=== PATIENT | female | born 1940 | race African-American/Black ===

== ENCOUNTER 2018-02-20 16:28 | Inpatient (IN) ==
[2018-02-20 18:19] LABS: Basophils # 0.1 10*3/uL (0.0-0.2); Basophils % 0.7 % (0.0-0.8); Eosinophils # 0.9 10*3/uL (0.0-0.87); Eosinophils % 9.1 % (0.00-10.9); Hematocrit 37.1 VOL% (35.7-47.0); Hemoglobin 12.1 GM/DL (12.0-16.0); Immature Granulocytes % 2.6 %; Immature Granulocytes Absolute 0.24 #; Lymphocytes # 1.6 10*3/uL (1.4-4.0); Lymphocytes % 17.1 % (21.3-54.2); Mean Corpuscular HGB Conc 32.6 GM/DL (32-36); Mean Corpuscular Hemoglobin 33 PG (27-34); Mean Corpuscular Volume 100.8 FL (87-102); Mean Platelet Volume 11.8 FL (9.6-12.0); Monocytes # 1.1 10*3/uL (0.11-0.8); Monocytes % 11.3 % (1.7-12.7); Neutrophils # 5.6 10*3/uL (1.4-7.4); Neutrophils % 59.2 % (38.7-73.9); Platelet Count 171 T/CUMM (130-400); Red Blood Count 3.68 MC/CUMM (3.8-5.5); Red Cell Distribution Width 12.4 % (9.3-17.3); White Blood Count 9.4 T/CUMM (4-12)
[2018-02-20] MEDS ORDERED: CLINDAMYCIN INJ 600 MG in PREMIX 1 EACH IV STA (18:30)
[2018-02-20 19:09] LABS: Calcium 7.9 MG/DL (8.5-10.1); Osmolality,Calculated 290.1 MOS/KG (273-304); Potassium 4.1 MMOL/L (3.5-5.1)
[2018-02-20] MEDS ORDERED: ACETAMINOPHEN 325 MG TABLET PO PRN (22:26)
[2018-02-20] MEDS ORDERED: ONDANSETRON 4 MG/2 ML VIAL IV PRN (22:26)
[2018-02-20] MEDS ORDERED: dimenhyDRINATE 50 MG TABLET PO PRN (22:26)
[2018-02-21] MEDS: CLINDAMYCIN INJ 600 MG in PREMIX 1 EACH IV SCH ×3 (03:50→21:27)
[2018-02-21] MEDS: diphenhydrAMINE CAP 25 MG CAPSULE PO PRN (08:07)
[2018-02-21] MEDS ORDERED: methylPREDNISolone SOD SUC 125 MG/2 ML VIAL IV ONE (10:01)
[2018-02-21] MEDS: ASPIRIN EC 81 MG TABLET PO SCH (10:20)
[2018-02-21] MEDS: LORATADINE 10 MG TABLET PO SCH (10:20)
[2018-02-21] MEDS: FLUCONAZOLE 150 MG TABLET PO SCH (10:20)
[2018-02-21] MEDS: POTASSIUM CHLORIDE 20 MEQ TABLET PO SCH (10:20)
[2018-02-21] MEDS: hydroCHLOROthiazide 25 MG TABLET PO SCH (10:21)
[2018-02-21] MEDS: HydrOXYzine PAMOATE 25 MG CAPSULE PO SCH ×2 (10:21→21:26)
[2018-02-21] MEDS: BENAZEPRIL 10 MG TABLET PO SCH (10:21)
[2018-02-21] MEDS: QUEtiapine 25 MG TABLET PO SCH ×2 (10:21→21:26)
[2018-02-21] MEDS: NEBIVOLOL 10 MG TABLET PO SCH (10:21)
[2018-02-21] MEDS: MEMANTINE 10 MG TABLET PO SCH (10:21)
[2018-02-21] MEDS: DOCUSATE SODIUM 100 MG CAPSULE PO SCH ×2 (10:21→21:26)
[2018-02-21] MEDS ORDERED: NEOMYCIN/POLYMYXIN/BACITRACIN OINT 0.9 GM PACK TOP SCH (21:00)
[2018-02-21] MEDS: traZODone 50 MG TABLET PO SCH (21:26)
[2018-02-21] MEDS: PRAVASTATIN 40 MG TABLET PO SCH (21:26)
[2018-02-21] MEDS: MELATONIN 3 MG TABLET PO SCH (21:26)
[2018-02-21] MEDS: NEOMYCIN/POLYMYXIN/BACITRACIN OINT 0.9 GM PACK TOP SCH (22:11)
[2018-02-22] MEDS: CLINDAMYCIN INJ 600 MG in PREMIX 1 EACH IV SCH ×3 (04:13→19:34)
[2018-02-22 05:43] LABS: Basophils % 0.2 % (0.0-0.8); Hematocrit 30.6 VOL% (35.7-47.0); Hemoglobin 9.9 GM/DL (12.0-16.0); Immature Granulocytes Absolute 0.25 #; Lymphocytes % 7.9 % (21.3-54.2); Mean Corpuscular HGB Conc 32.4 GM/DL (32-36); Mean Corpuscular Hemoglobin 33 PG (27-34); Mean Corpuscular Volume 100.3 FL (87-102); Mean Platelet Volume 12.1 FL (9.6-12.0); Monocytes % 7.8 % (1.7-12.7); Neutrophils # 10.1 10*3/uL (1.4-7.4); Neutrophils % 82.1 % (38.7-73.9); Platelet Count 157 T/CUMM (130-400); Red Blood Count 3.05 MC/CUMM (3.8-5.5); Red Cell Distribution Width 12.3 % (9.3-17.3); White Blood Count 12.3 T/CUMM (4-12)
[2018-02-22 06:04] LABS: Calcium 8.1 MG/DL (8.5-10.1); Osmolality,Calculated 306.4 MOS/KG (273-304); Potassium 4.4 MMOL/L (3.5-5.1)
[2018-02-22] MEDS: FLUCONAZOLE 150 MG TABLET PO SCH (08:40)
[2018-02-22] MEDS: hydroCHLOROthiazide 25 MG TABLET PO SCH (08:41)
[2018-02-22] MEDS: NEBIVOLOL 10 MG TABLET PO SCH (08:41)
[2018-02-22] MEDS: LORATADINE 10 MG TABLET PO SCH (08:41)
[2018-02-22] MEDS: NEOMYCIN/POLYMYXIN/BACITRACIN OINT 0.9 GM PACK TOP SCH ×2 (08:41→21:47)
[2018-02-22] MEDS: POTASSIUM CHLORIDE 20 MEQ TABLET PO SCH (08:41)
[2018-02-22] MEDS: QUEtiapine 25 MG TABLET PO SCH ×2 (08:41→21:46)
[2018-02-22] MEDS: BENAZEPRIL 10 MG TABLET PO SCH (08:41)
[2018-02-22] MEDS: DOCUSATE SODIUM 100 MG CAPSULE PO SCH ×2 (08:41→21:45)
[2018-02-22] MEDS: HydrOXYzine PAMOATE 25 MG CAPSULE PO SCH ×2 (08:41→21:44)
[2018-02-22] MEDS: ASPIRIN EC 81 MG TABLET PO SCH (08:41)
[2018-02-22] MEDS: MEMANTINE 10 MG TABLET PO SCH (08:41)
[2018-02-22] MEDS ORDERED: methylPREDNISolone SOD SUC 125 MG/2 ML VIAL IV ONE (10:09)
[2018-02-22] MEDS ORDERED: GLUCAGON 1 MG VIAL IM PRN ×2 (10:32→10:34)
[2018-02-22] MEDS ORDERED: DEXTROSE 50% 25 GM/50 ML VIAL IV PRN ×2 (10:32→10:34)
[2018-02-22] MEDS: INSULIN LISPRO 100 UNIT/ML SUBCUT SCH ×3 (12:53→21:48)
[2018-02-22] MEDS: diphenhydrAMINE CAP 25 MG CAPSULE PO PRN (19:34)
[2018-02-22] MEDS: PRAVASTATIN 40 MG TABLET PO SCH (21:44)
[2018-02-22] MEDS: MELATONIN 3 MG TABLET PO SCH (21:45)
[2018-02-22] MEDS: traZODone 50 MG TABLET PO SCH (21:46)
[2018-02-23] MEDS: CLINDAMYCIN INJ 600 MG in PREMIX 1 EACH IV SCH ×2 (05:23→12:57)
[2018-02-23] MEDS ORDERED: methylPREDNISolone SOD SUC 125 MG/2 ML VIAL IV SCH (09:00)
[2018-02-23] MEDS: NEOMYCIN/POLYMYXIN/BACITRACIN OINT 0.9 GM PACK TOP SCH ×2 (09:25→21:51)
[2018-02-23] MEDS: INSULIN LISPRO 100 UNIT/ML SUBCUT SCH ×4 (09:25→21:31)
[2018-02-23] MEDS: QUEtiapine 25 MG TABLET PO SCH ×2 (09:27→21:35)
[2018-02-23] MEDS: MEMANTINE 10 MG TABLET PO SCH (09:27)
[2018-02-23] MEDS: FLUCONAZOLE 100 MG TABLET PO SCH (09:28)
[2018-02-23] MEDS: LORATADINE 10 MG TABLET PO SCH (09:28)
[2018-02-23] MEDS: ASPIRIN EC 81 MG TABLET PO SCH (09:29)
[2018-02-23] MEDS: DOCUSATE SODIUM 100 MG CAPSULE PO SCH ×2 (09:29→21:35)
[2018-02-23] MEDS: POTASSIUM CHLORIDE 20 MEQ TABLET PO SCH (09:29)
[2018-02-23] MEDS: hydroCHLOROthiazide 25 MG TABLET PO SCH (09:30)
[2018-02-23] MEDS: NEBIVOLOL 10 MG TABLET PO SCH (09:30)
[2018-02-23] MEDS: BENAZEPRIL 10 MG TABLET PO SCH (09:32)
[2018-02-23] MEDS: HydrOXYzine PAMOATE 25 MG CAPSULE PO SCH ×2 (09:38→21:36)
[2018-02-23 11:38] LABS: Alanine Aminotransferase 15 U/L (13-56); Albumin 2.2 G/DL (3.4-5.0); Alkaline Phosphatase 160 U/L (45-117); Aspartate Amino Transferase 18 U/L (0-37); Bilirubin,Direct < 0.050 MG/DL (0.0-0.20); Bilirubin,Indirect 0.3 MG/DL (0.0-1.0); Bilirubin,Total < 0.39 MG/DL (0.2-1.0); Total Protein 6.8 G/DL (6.4-8.3)
[2018-02-23] MEDS ORDERED: SKIN HEALING OINT (AQUAPHOR) 50 GM TUBE TOP SCH (16:00)
[2018-02-23] MEDS: PRAVASTATIN 40 MG TABLET PO SCH (21:35)
[2018-02-23] MEDS: MELATONIN 3 MG TABLET PO SCH (21:35)
[2018-02-23] MEDS: traZODone 50 MG TABLET PO SCH (21:35)
[2018-02-23] MEDS: diphenhydrAMINE CAP 25 MG CAPSULE PO PRN (21:38)
[2018-02-24 05:58] LABS: Basophils # 0.1 10*3/uL (0.0-0.2); Basophils % 0.3 % (0.0-0.8); Eosinophils % 0.2 % (0.00-10.9); Hemoglobin 9.9 GM/DL (12.0-16.0); Immature Granulocytes % 6.9 %; Immature Granulocytes Absolute 1.37 #; Lymphocytes # 1.7 10*3/uL (1.4-4.0); Lymphocytes % 8.4 % (21.3-54.2); Mean Corpuscular Hemoglobin 33 PG (27-34); Mean Platelet Volume 11.9 FL (9.6-12.0); Monocytes # 1.8 10*3/uL (0.11-0.8); Monocytes % 9.1 % (1.7-12.7); NRBC # 0.02 10*3/uL; Neutrophils % 75.1 % (38.7-73.9); Platelet Count 165 T/CUMM (130-400); Red Blood Count 3.03 MC/CUMM (3.8-5.5); Red Cell Distribution Width 12.2 % (9.3-17.3); White Blood Count 19.9 T/CUMM (4-12)
[2018-02-24 06:19] LABS: Calcium 7.9 MG/DL (8.5-10.1); Osmolality,Calculated 292.5 MOS/KG (273-304); Potassium 4.4 MMOL/L (3.5-5.1)
[2018-02-24 06:28] LABS: Band Neutrophils 1 % (0-10); Hypochromasia 1+; Lymphocytes 10 % (20-55); Platelet Estimate Normal; Segmented Neutrophils 85 % (50-85); Total Cells Counted 100
[2018-02-24] MEDS: ASPIRIN EC 81 MG TABLET PO SCH (08:51)
[2018-02-24] MEDS: NEBIVOLOL 10 MG TABLET PO SCH (08:51)
[2018-02-24] MEDS: HydrOXYzine PAMOATE 25 MG CAPSULE PO SCH ×2 (08:51→20:31)
[2018-02-24] MEDS: MEMANTINE 10 MG TABLET PO SCH (08:51)
[2018-02-24] MEDS: LORATADINE 10 MG TABLET PO SCH (08:52)
[2018-02-24] MEDS: FLUCONAZOLE 100 MG TABLET PO SCH (08:52)
[2018-02-24] MEDS: BENAZEPRIL 10 MG TABLET PO SCH (08:53)
[2018-02-24] MEDS: DOCUSATE SODIUM 100 MG CAPSULE PO SCH ×2 (08:53→20:31)
[2018-02-24] MEDS: POTASSIUM CHLORIDE 20 MEQ TABLET PO SCH (08:53)
[2018-02-24] MEDS: hydroCHLOROthiazide 25 MG TABLET PO SCH (08:53)
[2018-02-24] MEDS: INSULIN LISPRO 100 UNIT/ML SUBCUT SCH ×4 (08:53→20:31)
[2018-02-24] MEDS: methylPREDNISolone SOD SUC 40 MG/1 ML VIAL IV SCH (08:58)
[2018-02-24 09:01] LABS: Anti SS-A Antibodies < 16 EU/ML
[2018-02-24] MEDS: NEOMYCIN/POLYMYXIN/BACITRACIN OINT 0.9 GM PACK TOP SCH ×2 (10:14→20:33)
[2018-02-24] MEDS: QUEtiapine 25 MG TABLET PO SCH (20:31)
[2018-02-24] MEDS: MELATONIN 3 MG TABLET PO SCH (20:31)
[2018-02-24] MEDS: traZODone 50 MG TABLET PO SCH (20:31)
[2018-02-24] MEDS: PRAVASTATIN 40 MG TABLET PO SCH (20:31)
[2018-02-25 07:26] LABS: Calcium 8.7 MG/DL (8.5-10.1); Osmolality,Calculated 291.3 MOS/KG (273-304); Potassium 4.5 MMOL/L (3.5-5.1)
[2018-02-25] MEDS: LORATADINE 10 MG TABLET PO SCH (08:03)
[2018-02-25] MEDS: ASPIRIN EC 81 MG TABLET PO SCH (08:03)
[2018-02-25] MEDS: NEBIVOLOL 10 MG TABLET PO SCH (08:03)
[2018-02-25] MEDS: MEMANTINE 10 MG TABLET PO SCH (08:04)
[2018-02-25] MEDS: BENAZEPRIL 10 MG TABLET PO SCH (08:04)
[2018-02-25] MEDS: POTASSIUM CHLORIDE 20 MEQ TABLET PO SCH (08:05)
[2018-02-25] MEDS: FLUCONAZOLE 100 MG TABLET PO SCH (08:05)
[2018-02-25] MEDS: HydrOXYzine PAMOATE 25 MG CAPSULE PO SCH ×2 (08:05→21:07)
[2018-02-25] MEDS: hydroCHLOROthiazide 25 MG TABLET PO SCH (08:05)
[2018-02-25] MEDS: DOCUSATE SODIUM 100 MG CAPSULE PO SCH ×2 (08:05→21:07)
[2018-02-25] MEDS: methylPREDNISolone SOD SUC 40 MG/1 ML VIAL IV SCH (08:11)
[2018-02-25] MEDS: NEOMYCIN/POLYMYXIN/BACITRACIN OINT 0.9 GM PACK TOP SCH (08:12)
[2018-02-25] MEDS: INSULIN LISPRO 100 UNIT/ML SUBCUT SCH ×4 (08:41→21:08)
[2018-02-25 09:47] LABS: Basophils # 0.1 10*3/uL (0.0-0.2); Basophils % 0.6 % (0.0-0.8); Eosinophils # 0.3 10*3/uL (0.0-0.87); Eosinophils % 1.3 % (0.00-10.9); Hematocrit 35.4 VOL% (35.7-47.0); Hemoglobin 11.8 GM/DL (12.0-16.0); Immature Granulocytes % 8.3 %; Immature Granulocytes Absolute 1.81 #; Lymphocytes # 2.9 10*3/uL (1.4-4.0); Lymphocytes % 13.4 % (21.3-54.2); Mean Corpuscular HGB Conc 33.3 GM/DL (32-36); Mean Corpuscular Hemoglobin 33 PG (27-34); Mean Corpuscular Volume 99.2 FL (87-102); Mean Platelet Volume 12.5 FL (9.6-12.0); NRBC # 0.05 10*3/uL; Neutrophils # 14.7 10*3/uL (1.4-7.4); Neutrophils % 67.4 % (38.7-73.9); Platelet Count 198 T/CUMM (130-400); Red Blood Count 3.57 MC/CUMM (3.8-5.5); Red Cell Distribution Width 12.3 % (9.3-17.3); White Blood Count 21.8 T/CUMM (4-12)
[2018-02-25 10:00] LABS: Band Neutrophils 6 % (0-10); Eosinophils 2 % (0-10); Lymphocytes 13 % (20-55); Nucleated Red Blood Cells 1 (0-5); Platelet Estimate Adequate; Segmented Neutrophils 67 % (50-85); Total Cells Counted 100
[2018-02-25 10:01] LABS: Hypochromasia 1+; Ovalocytes Slight
[2018-02-25] MEDS ORDERED: LORazepam 2 MG/1 ML VIAL IV PRN (20:26)
[2018-02-25] MEDS: QUEtiapine 25 MG TABLET PO SCH (21:07)
[2018-02-26 06:45] LABS: Basophils # 0.1 10*3/uL (0.0-0.2); Basophils % 0.3 % (0.0-0.8); Eosinophils # 0.2 10*3/uL (0.0-0.87); Eosinophils % 1.1 % (0.00-10.9); Hematocrit 30.9 VOL% (35.7-47.0); Hemoglobin 10.4 GM/DL (12.0-16.0); Immature Granulocytes % 7.3 %; Immature Granulocytes Absolute 1.28 #; Lymphocytes # 1.6 10*3/uL (1.4-4.0); Mean Corpuscular HGB Conc 33.7 GM/DL (32-36); Mean Corpuscular Hemoglobin 33 PG (27-34); Mean Corpuscular Volume 97.5 FL (87-102); Mean Platelet Volume 12.1 FL (9.6-12.0); Monocytes # 2.2 10*3/uL (0.11-0.8); Monocytes % 12.6 % (1.7-12.7); NRBC # 0.02 10*3/uL; Neutrophils # 12.3 10*3/uL (1.4-7.4); Neutrophils % 69.7 % (38.7-73.9); Platelet Count 175 T/CUMM (130-400); Red Blood Count 3.17 MC/CUMM (3.8-5.5); Red Cell Distribution Width 12.7 % (9.3-17.3); White Blood Count 17.6 T/CUMM (4-12)
[2018-02-26 06:58] LABS: Calcium 8.3 MG/DL (8.5-10.1); Osmolality,Calculated 293.1 MOS/KG (273-304); Potassium 4.2 MMOL/L (3.5-5.1)
[2018-02-26 07:09] LABS: Band Neutrophils 1 % (0-10); Eosinophils 3 % (0-10); Hypochromasia 1+; Lymphocytes 11 % (20-55); Platelet Estimate Normal; Segmented Neutrophils 75 % (50-85); Total Cells Counted 100
[2018-02-26] MEDS: INSULIN LISPRO 100 UNIT/ML SUBCUT SCH ×2 (09:46→12:34)
[2018-02-26] MEDS: methylPREDNISolone SOD SUC 40 MG/1 ML VIAL IV SCH (09:48)
[2018-02-26 11:24] VITALS: BP 155/81
[2018-02-26] MEDS: DOCUSATE SODIUM 100 MG CAPSULE PO SCH (12:39)
[2018-02-26] MEDS: ASPIRIN EC 81 MG TABLET PO SCH (12:40)
[2018-02-26] MEDS: NEBIVOLOL 10 MG TABLET PO SCH (12:40)
[2018-02-26] MEDS: HydrOXYzine PAMOATE 25 MG CAPSULE PO SCH (12:41)
[2018-02-26] MEDS: hydroCHLOROthiazide 25 MG TABLET PO SCH (12:41)
[2018-02-26] MEDS: FLUCONAZOLE 100 MG TABLET PO SCH (12:42)
[2018-02-26] MEDS: LORATADINE 10 MG TABLET PO SCH (12:42)
== END 2018-02-26 13:25 | disposition home health service (06) | DRG 607 ==
LOC: EDBD → EDUNIT# → N.EDINP 16:28 → N.ED 16:28 → N.3E 21:45
PROVIDERS: ADMIT Internal Medicine; ATTEND Internal Medicine

== ENCOUNTER 2018-08-29 08:03 | Inpatient (IN) ==
[2018-08-29 08:32] LABS: Basophils % 0.3 % (0.0-0.8); Eosinophils # 0.2 10*3/uL (0.0-0.87); Eosinophils % 1.6 % (0.00-10.9); Hemoglobin 12.3 GM/DL (12.0-16.0); Immature Granulocytes % 2.3 %; Immature Granulocytes Absolute 0.26 #; Lymphocytes # 2.3 10*3/uL (1.4-4.0); Mean Corpuscular HGB Conc 30.8 GM/DL (32-36); Mean Corpuscular Hemoglobin 31 PG (27-34); Mean Platelet Volume 12.6 FL (9.6-12.0); Monocytes # 1.3 10*3/uL (0.11-0.8); Monocytes % 11.4 % (1.7-12.7); NRBC # 0.09 10*3/uL; Neutrophils # 7.4 10*3/uL (1.4-7.4); Neutrophils % 64.4 % (38.7-73.9); Platelet Count 187 T/CUMM (130-400); Red Cell Distribution Width 14.2 % (9.3-17.3); White Blood Count 11.5 T/CUMM (4-12)
[2018-08-29 08:50] LABS: Albumin 2.1 G/DL (3.4-5.0); Bilirubin,Total 0.7 MG/DL (0.2-1.0); Calcium 8.7 MG/DL (8.5-10.1); Osmolality,Calculated 311.6 MOS/KG (273-304); Total Protein 7.6 G/DL (6.4-8.3)
[2018-08-29 09:00] LABS: Amorphous Crystals,Urine Few /HPF (Few); Apearance,Urine CLOUDY (Clear); Bacteria,Urine Moderate /HPF (Few); Bilirubin,Urine Negative (Negative); Blood, Urine Moderate mg/dL (Negative); Glucose,Urine (UA) Negative (Negative); Ketones,Urine 5 mg/dL (Negative); Mucus,Urine Occasional /LPF (Occasional); Nitrite,Urine Negative (Negative); Protein,Urine 100 MG/DL; RBC,Urine 7 /HPF (0-4); Squamous Epithelial Cell,Urine Occasional /HPF (0-10); Urine Color Yellow (Yellow); Urine Specific Gravity 1.014 (1.001-1.035); WBC,Urine 67 /HPF (0-6)
[2018-08-29] MEDS ORDERED: cefTRIAXone 1,000 MG in SODIUM CHLORIDE 0.9% 100 ML IV STA (10:13)
[2018-08-29] MEDS ORDERED: GLUCAGON 1 MG VIAL IM PRN (10:13)
[2018-08-29] MEDS ORDERED: ONDANSETRON 4 MG/2 ML VIAL IV PRN (10:13)
[2018-08-29] MEDS ORDERED: ACETAMINOPHEN 325 MG TABLET PO PRN (10:13)
[2018-08-29] MEDS ORDERED: DEXTROSE 50% 25 GM/50 ML VIAL IV PRN (10:13)
[2018-08-29] MEDS ORDERED: cefTRIAXone 1,000 MG in SYRINGE 1 EACH IV STA (10:19)
[2018-08-29] MEDS ORDERED: cefTRIAXone 1,000 MG VIAL ONE (10:26)
[2018-08-29] MEDS ORDERED: SODIUM CHLORIDE 0.45% 1,000 ML IV SCH (10:30)
[2018-08-29] MEDS ORDERED: cefTRIAXone 1,000 MG in SYRINGE 1 EACH IV SCH (10:30)
[2018-08-29] MEDS ORDERED: diphenhydrAMINE CAP 25 MG CAPSULE PO PRN (11:19)
[2018-08-29] MEDS ORDERED: traMADol 50 MG TABLET PO PRN (11:19)
[2018-08-29] MEDS ORDERED: MECLIZINE 25 MG TABLET PO PRN (11:19)
[2018-08-29] MEDS: INSULIN LISPRO 100 UNIT/ML SUBCUT SCH ×3 (11:30→20:43)
[2018-08-29] MEDS: NYSTATIN 500,000 UNIT/5 ML UDCUP SWISH/SWAL SCH ×3 (13:00→20:29)
[2018-08-29] MEDS: ENOXAPARIN 30 MG/0.3 ML SYRINGE SUBCUT SCH (13:57)
[2018-08-29] MEDS: SODIUM CHLORIDE 0.45% 1,000 ML IV SCH (13:57)
[2018-08-29] MEDS: HydrOXYzine PAMOATE 25 MG CAPSULE PO SCH (20:27)
[2018-08-29] MEDS: DOCUSATE SODIUM 100 MG CAPSULE PO SCH (20:27)
[2018-08-29] MEDS: MEMANTINE 5 MG TABLET PO SCH (20:28)
[2018-08-29] MEDS: MELATONIN 3 MG TABLET PO SCH (20:28)
[2018-08-29] MEDS: traMADol 50 MG TABLET PO PRN (20:28)
[2018-08-29] MEDS: NEBIVOLOL 5 MG TABLET PO SCH (20:29)
[2018-08-29] MEDS: APREMILAST 30 MG PO SCH (20:38)
[2018-08-29] MEDS ORDERED: QUEtiapine 25 MG TABLET PO SCH ×2 (21:00)
[2018-08-29] MEDS ORDERED: DOCUSATE SODIUM 100 MG CAPSULE PO SCH (21:00)
[2018-08-30] MEDS: SODIUM CHLORIDE 0.45% 1,000 ML IV SCH ×2 (04:35→17:24)
[2018-08-30 06:24] LABS: Basophils # 0.1 10*3/uL (0.0-0.2); Basophils % 0.5 % (0.0-0.8); Eosinophils # 0.2 10*3/uL (0.0-0.87); Eosinophils % 2.2 % (0.00-10.9); Hemoglobin 11.3 GM/DL (12.0-16.0); Immature Granulocytes % 3.7 %; Immature Granulocytes Absolute 0.41 #; Lymphocytes # 2.4 10*3/uL (1.4-4.0); Lymphocytes % 21.6 % (21.3-54.2); Mean Corpuscular HGB Conc 30.5 GM/DL (32-36); Mean Corpuscular Hemoglobin 30 PG (27-34); Mean Corpuscular Volume 98.4 FL (87-102); Mean Platelet Volume 13.3 FL (9.6-12.0); Monocytes # 1.6 10*3/uL (0.11-0.8); Monocytes % 14.4 % (1.7-12.7); NRBC # 0.07 10*3/uL; Neutrophils # 6.3 10*3/uL (1.4-7.4); Neutrophils % 57.6 % (38.7-73.9); Platelet Count 156 T/CUMM (130-400); Red Blood Count 3.76 MC/CUMM (3.8-5.5); Red Cell Distribution Width 13.9 % (9.3-17.3)
[2018-08-30 06:43] LABS: Calcium 8.4 MG/DL (8.5-10.1); Osmolality,Calculated 294.7 MOS/KG (273-304); Potassium 3.6 MMOL/L (3.5-5.1)
[2018-08-30] MEDS: INSULIN LISPRO 100 UNIT/ML SUBCUT SCH ×4 (08:12→22:45)
[2018-08-30] MEDS: ENOXAPARIN 30 MG/0.3 ML SYRINGE SUBCUT SCH (08:42)
[2018-08-30] MEDS: ASPIRIN EC 81 MG TABLET PO SCH (08:43)
[2018-08-30] MEDS: HydrOXYzine PAMOATE 25 MG CAPSULE PO SCH ×2 (08:43→20:08)
[2018-08-30] MEDS: DOCUSATE SODIUM 100 MG CAPSULE PO SCH ×2 (08:43→20:08)
[2018-08-30] MEDS: MEMANTINE 5 MG TABLET PO SCH ×2 (08:43→20:08)
[2018-08-30] MEDS: FAMOTIDINE 20 MG TABLET PO SCH (08:43)
[2018-08-30] MEDS: PANTOPRAZOLE 40 MG TABLET PO SCH (08:43)
[2018-08-30] MEDS: amLODIPine 5 MG TABLET PO SCH (08:43)
[2018-08-30] MEDS: NYSTATIN 500,000 UNIT/5 ML UDCUP SWISH/SWAL SCH ×4 (08:43→20:08)
[2018-08-30] MEDS ORDERED: POTASSIUM CHLORIDE 20 MEQ TABLET PO SCH (09:00)
[2018-08-30] MEDS ORDERED: QUEtiapine 25 MG TABLET PO SCH (09:00)
[2018-08-30] MEDS: cefTRIAXone 1,000 MG in SYRINGE 1 EACH IV SCH (10:46)
[2018-08-30] MEDS: APREMILAST 30 MG PO SCH ×2 (10:51→21:35)
[2018-08-30] MEDS: TRIAMCINOLONE 0.1% CREAM 15 GM TUBE TOP SCH ×2 (10:51→20:08)
[2018-08-30] MEDS: traMADol 50 MG TABLET PO PRN ×2 (11:41→20:08)
[2018-08-30] MEDS: MELATONIN 3 MG TABLET PO SCH (20:08)
[2018-08-30] MEDS: QUEtiapine 25 MG TABLET PO SCH (20:08)
[2018-08-30] MEDS: NEBIVOLOL 5 MG TABLET PO SCH ×2 (20:08→21:45)
[2018-08-31] MEDS: SODIUM CHLORIDE 0.45% 1,000 ML IV SCH ×4 (01:51→22:06)
[2018-08-31 04:05] LABS: Basophils # 0.1 10*3/uL (0.0-0.2); Basophils % 0.6 % (0.0-0.8); Eosinophils # 0.3 10*3/uL (0.0-0.87); Eosinophils % 2.9 % (0.00-10.9); Hematocrit 31.4 VOL% (35.7-47.0); Hemoglobin 10.3 GM/DL (12.0-16.0); Immature Granulocytes % 5.2 %; Immature Granulocytes Absolute 0.51 #; Lymphocytes # 2.5 10*3/uL (1.4-4.0); Lymphocytes % 25.3 % (21.3-54.2); Mean Corpuscular HGB Conc 32.8 GM/DL (32-36); Mean Corpuscular Hemoglobin 31 PG (27-34); Mean Corpuscular Volume 95.2 FL (87-102); Mean Platelet Volume 12.7 FL (9.6-12.0); Monocytes # 1.5 10*3/uL (0.11-0.8); Monocytes % 15.5 % (1.7-12.7); NRBC # 0.05 10*3/uL; Neutrophils # 4.9 10*3/uL (1.4-7.4); Neutrophils % 50.5 % (38.7-73.9); Platelet Count 152 T/CUMM (130-400); Red Cell Distribution Width 13.3 % (9.3-17.3); White Blood Count 9.8 T/CUMM (4-12)
[2018-08-31 04:24] LABS: Osmolality,Calculated 285.3 MOS/KG (273-304); Potassium 3.4 MMOL/L (3.5-5.1)
[2018-08-31 04:36] LABS: Eosinophils 4 % (0-10); Lymphocytes 22 % (20-55); Platelet Estimate Adequate; Polychromasia Few; Segmented Neutrophils 67 % (50-85); Total Cells Counted 100
[2018-08-31] MEDS ORDERED: FUROSEMIDE 20 MG TABLET PO SCH (09:00)
[2018-08-31] MEDS: amLODIPine 5 MG TABLET PO SCH (09:37)
[2018-08-31] MEDS: PANTOPRAZOLE 40 MG TABLET PO SCH (09:37)
[2018-08-31] MEDS: POTASSIUM CHLORIDE 20 MEQ TABLET PO SCH ×2 (09:37→21:35)
[2018-08-31] MEDS: HydrOXYzine PAMOATE 25 MG CAPSULE PO SCH ×2 (09:37→21:37)
[2018-08-31] MEDS: traMADol 50 MG TABLET PO PRN ×2 (09:37→21:36)
[2018-08-31] MEDS: MEMANTINE 5 MG TABLET PO SCH ×2 (09:37→21:36)
[2018-08-31] MEDS: ASPIRIN EC 81 MG TABLET PO SCH (09:37)
[2018-08-31] MEDS: NYSTATIN 500,000 UNIT/5 ML UDCUP SWISH/SWAL SCH ×4 (09:38→21:36)
[2018-08-31] MEDS: FAMOTIDINE 20 MG TABLET PO SCH (09:38)
[2018-08-31] MEDS: DOCUSATE SODIUM 100 MG CAPSULE PO SCH ×2 (09:38→21:35)
[2018-08-31] MEDS: ENOXAPARIN 30 MG/0.3 ML SYRINGE SUBCUT SCH (09:38)
[2018-08-31] MEDS: QUEtiapine 25 MG TABLET PO SCH ×2 (09:38→21:37)
[2018-08-31] MEDS: cefTRIAXone 1,000 MG in SYRINGE 1 EACH IV SCH (09:39)
[2018-08-31] MEDS: TRIAMCINOLONE 0.1% CREAM 15 GM TUBE TOP SCH ×2 (09:43→21:37)
[2018-08-31] MEDS: INSULIN LISPRO 100 UNIT/ML SUBCUT SCH ×3 (11:33→17:49)
[2018-08-31] MEDS: APREMILAST 30 MG PO SCH (11:33)
[2018-08-31] MEDS: MELATONIN 3 MG TABLET PO SCH (21:35)
[2018-08-31] MEDS: NEBIVOLOL 5 MG TABLET PO SCH (21:36)
[2018-09-01] MEDS: INSULIN LISPRO 100 UNIT/ML SUBCUT SCH ×3 (02:06→12:38)
[2018-09-01] MEDS: APREMILAST 30 MG PO SCH ×2 (02:07→09:35)
[2018-09-01 04:30] LABS: Basophils # 0.1 10*3/uL (0.0-0.2); Basophils % 0.9 % (0.0-0.8); Eosinophils # 0.2 10*3/uL (0.0-0.87); Eosinophils % 2.3 % (0.00-10.9); Hematocrit 33.8 VOL% (35.7-47.0); Hemoglobin 10.6 GM/DL (12.0-16.0); Immature Granulocytes % 7.9 %; Immature Granulocytes Absolute 0.68 #; Lymphocytes % 23.8 % (21.3-54.2); Mean Corpuscular HGB Conc 31.4 GM/DL (32-36); Mean Corpuscular Hemoglobin 30 PG (27-34); Mean Corpuscular Volume 96.3 FL (87-102); Mean Platelet Volume 13.3 FL (9.6-12.0); Monocytes # 1.4 10*3/uL (0.11-0.8); NRBC # 0.03 10*3/uL; Neutrophils # 4.2 10*3/uL (1.4-7.4); Neutrophils % 49.1 % (38.7-73.9); Platelet Count 152 T/CUMM (130-400); Red Blood Count 3.51 MC/CUMM (3.8-5.5); Red Cell Distribution Width 13.2 % (9.3-17.3); White Blood Count 8.6 T/CUMM (4-12)
[2018-09-01 04:59] LABS: Calcium 7.7 MG/DL (8.5-10.1); Osmolality,Calculated 283.3 MOS/KG (273-304); Potassium 3.5 MMOL/L (3.5-5.1)
[2018-09-01 05:04] LABS: Eosinophils 2 % (0-10); Lymphocytes 29 % (20-55); Platelet Estimate Adequate; Polychromasia Few; Segmented Neutrophils 62 % (50-85); Total Cells Counted 100
[2018-09-01] MEDS: cefTRIAXone 1,000 MG in SYRINGE 1 EACH IV SCH (09:33)
[2018-09-01] MEDS: MEMANTINE 5 MG TABLET PO SCH (09:34)
[2018-09-01] MEDS: ASPIRIN EC 81 MG TABLET PO SCH (09:34)
[2018-09-01] MEDS: PANTOPRAZOLE 40 MG TABLET PO SCH (09:34)
[2018-09-01] MEDS: NYSTATIN 500,000 UNIT/5 ML UDCUP SWISH/SWAL SCH (09:34)
[2018-09-01] MEDS: HydrOXYzine PAMOATE 25 MG CAPSULE PO SCH (09:34)
[2018-09-01] MEDS: FAMOTIDINE 20 MG TABLET PO SCH (09:34)
[2018-09-01] MEDS: amLODIPine 5 MG TABLET PO SCH (09:34)
[2018-09-01] MEDS: POTASSIUM CHLORIDE 20 MEQ TABLET PO SCH (09:34)
[2018-09-01] MEDS: DOCUSATE SODIUM 100 MG CAPSULE PO SCH (09:34)
[2018-09-01] MEDS: QUEtiapine 25 MG TABLET PO SCH (09:35)
[2018-09-01] MEDS: ENOXAPARIN 30 MG/0.3 ML SYRINGE SUBCUT SCH (09:35)
[2018-09-01] MEDS: SODIUM CHLORIDE 0.45% 1,000 ML IV SCH (09:35)
[2018-09-01] MEDS: TRIAMCINOLONE 0.1% CREAM 15 GM TUBE TOP SCH (09:36)
[2018-09-01 14:56] VITALS: BP 110/46
== END 2018-09-01 13:15 | disposition home health service (06) | DRG 683 ==
LOC: EDBD → EDUNIT# → N.ED 08:03 → N.EDINP 10:13 → N.5E 10:36
PROVIDERS: ADMIT Internal Medicine; ATTEND Internal Medicine